=== PATIENT | female | born 2000 | race Two or more races ===

== ENCOUNTER 2024-05-14 20:28 | Emergency (ER) | payer MEDICAID, SELFPAY ==
[2024-05-14 20:29] VITALS: BMI 25.6
[2024-05-14 20:38] VITALS: BP 141/80; PULSE 91; RESP 18; TEMP 36.7; O2SAT 98
--- NOTE | 2024-05-14 20:41 | XR_ITS ---
Examination: Pelvic ultrasound, transabdominal, complete Technique: Transabdominal ultrasound of the pelvis performed using grayscale imaging Date and time of exam: May 14, 2024 10:15 PM INDICATIONS: Onset left pelvic pain today FINDINGS: Uterus 6.7 cm endometrial stripe 0.2 cm No uterine mass or intrauterine gestation Right ovary 2.5 cm arterial flow Left ovary 3.0 cm arterial flow 17 mm follicular cyst IMPRESSION: No uterine mass or intrauterine gestation
--- NOTE | 2024-05-14 20:42 | PD.EDRME ---
Rapid Medical Screening Exam RME Arrival date/time: 05/14/24 20:28 24 yo f present to ED for c/o of pelvic pain for 1 day I have greeted and performed a focused initial assessment of this patient. A comprehensive ED assessment and evaluation of the patient, analysis of all test results, and completion of the medical decision making process will be conducted by additional ED providers. Chief Complaint: Abdominal Pain Time Seen by Provider: 05/14/24 20:31 Vital signs: Vital Signs Temperature 98.1 F 05/14/24 20:38 Pulse Rate 91 05/14/24 20:38 Respiratory Rate 18 05/14/24 20:38 Blood Pressure 141/80 H 05/14/24 20:38 Pulse Oximetry (%) 98 05/14/24 20:38 Oxygen Delivery Method Room Air 05/14/24 20:38 Vital signs reviewed by provider: Yes RME Narrative: Dr. Ayah CATALAN: 24-year-old female who is not sexually active at this time last menstrual period was approximately 1 year ago presenting to the emergency department with 2-day history of left lower quadrant aching like pain that is nonradiating and is an 8 out of 10. The patient states she took Tylenol this morning with some relief down to a 2 out of 10 but the pain returned. The patient has not had pain like this in the past. She denies burning when she urinates and or vaginal discharge. No back pain. Past medical history is consistent with history of gallbladder disease 3 years ago. Review of systems are negative for chest pain, shortness of breath, fever, or lightheadedness.
--- NOTE | 2024-05-14 20:49 | PD.EDABDPN ---
ED Abdominal Pain RME/HPI General Chief Complaint: Abdominal Pain Stated complaint: LL abd pain Time seen by provider: 05/14/24 20:31 Arrival date/time: 05/14/24 20:28 Source: patient Mode of arrival: ambulatory Limitations: no limitations RME / HPI RME / HPI narrative: Dr. Wade?s Main ED Evaluation: 24-year-old female with a remote history of gallbladder disease (3 years ago), currently not sexually active, presents with a 2-day history of non-radiating, aching pain localized to the left lower quadrant positive, rated 8/10 at its peak. She reports partial relief to 2/10 after taking Tylenol this morning, though the pain subsequently returned. She denies similar episodes in the past. + dysuria. No associated urinary symptoms vaginal discharge, or back pain. Last menstrual period was approximately one year ago. ROS is negative for chest pain, shortness of breath, fever, or lightheadedness. Related Data Previous Rx's ?Medication ?Instructions ?Recorded cephalexin 500 mg capsule 500 mg PO TID #21 caps 05/15/24 Allergies Allergy/AdvReac Type Severity Reaction Status Date / Time ibuprofen Allergy Severe Hives Verified 05/14/24 20:33 Review of Systems Review of Systems Systems Reviewed: All systems reviewed, normal except as documented Past Medical History Past Medical History NEUROLOGIC: Negative Neurological Disorders or Seizures CARDIAC: Negative Cardiac Disorders or Congestive Heart Failure RESPIRATORY: Negative Chronic Obstructive Pulmonary Disease (COPD) or Asthma GASTROINTESTINAL: Positive Gall Bladder Disease (lap cholecystectomy in 10/2020); Negative Gastrointestinal Disorders or Hepatitis GENITOURINARY: Negative Genitourinary Disorders or Renal Disease REPRODUCTIVE: Positive Previous Pregnancies (x1); Negative Endometriosis, Genital Herpes, Gonorrhea, Pelvic Inflammatory Disease, Syphilis or Uterine Prolapse MUSCULOSKELETAL: Negative Musculoskeletal Disorders ENDOCRINE: Negative Endocrine Disorders, Diabetes Mellitus Type 1 or Diabetes Mellitus Type 2 HEMATOLOGIC: Negative Blood Disorders, Sickle Cell Disease or Clotting Problems OTHER HISTORY: Positive Hospitalization (gallbladder pain in 10/2020); Negative Autoimmune Disease, Falls, Blood Transfusions, Blood Transfusion Reaction, Anesthesia Reactions, MRSA, VRSA, Human Immunodeficiency Virus (HIV), Chicken Pox, Measles, Mumps, Rubella (Swedish Measles), Pertussis, Clostridium Difficile or Cancer Family History FAMILY HISTORY: Negative Family Psychiatric Problems, Family Respiratory Disorders, Family Cardiac Disorders, Family Gastrointestinal Problems, Family Cancer, Family Surgery or Family Anesthesia Reaction Surgical History SURGICAL: Positive Tympanostomy Tube (possible as a child), Abdominal Surgery (C/S 10/16/20) and Section (x1); Negative Cardiac Surgery or Endocrine Surgery Social History SMOKING STATUS: Never smoker SECOND HAND EXPOSURE: No SUBSTANCE USE: does not use ED Exam General Limitations: Present no limitations General appearance: Present alert and in no apparent distress Head Head exam: Present atraumatic Eye Eye exam: Present normal appearance, PERRL and EOMI ENT ENT exam: Present normal exam, normal oropharynx and mucous membranes moist Neck Neck exam: Present normal inspection, full ROM and trachea midline Chest Chest inspection: Present normal inspection and symmetric chest wall rise Respiratory Respiratory exam: Present normal lung sounds bilaterally Cardiovascular Cardiovascular exam: Present regular rate, normal rhythm and normal heart sounds Abdominal Exam Abdominal exam: Present soft and normal bowel sounds Extremities Exam Extremities exam: Present normal inspection and full ROM Back Exam Back exam: Present normal inspection and full ROM Neurological Exam Neurological exam: Present alert, oriented X3 and CN II-XII intact Psychiatric Psychiatric exam: Present normal affect and normal mood Skin Skin exam: Present warm, dry, intact and normal color Course Quality Measures none Orders Category Date Time Status US pelvic complete Stat Exams 05/14/24 20:41 Completed CBC Stat Lab 05/14/24 20:48 Completed CMP [Comprehensive Metabolic Panel] Stat Lab 05/14/24 20:48 Completed HCG,Qualitative Serum Stat Lab 05/14/24 20:48 Completed UA [Urinalysis] Stat Lab 05/14/24 21:38 Completed Vital Signs Vital signs: Vital Signs Temperature 98.1 F 05/14/24 20:38 Pulse Rate 91 05/14/24 20:38 Respiratory Rate 18 05/14/24 20:38 Blood Pressure 141/80 H 05/14/24 20:38 Pulse Oximetry (%) 98 05/14/24 20:38 Oxygen Delivery Method Room Air 05/14/24 20:38 Abdominal Pain MDM MDM Narrative MDM Narrative:: 24-year-old female with history of cholecystectomy presenting the emergency department with dysuria and left lower quadrant pain x 2 days. Patient otherwise appears in no acute distress. No rebound on exam. Differential diagnosis includes UTI, pelvic cyst, dysuria, ruptured cyst, pyelonephritis ED course While in the emergency department. Labs are drawn. Hemoglobin is 6.9 with an H&H of 14/40. Platelets 279. All of these labs are normal. BUN/creatinine are normal. Otherwise hCG is negative Urinalysis shows 18 white cells rare bacteria and leukocytes. Will treat for UTI. Pelvic ultrasound is pending. Scribe Attestation: I, Damien Manang, am scribing for and in the presence of Dr. Wade. Provider Notation: Although this document has been carefully reviewed, there may still be some phonetic and other typographical errors. These errors are purely grammatical due to imperfections in the software program and should not be construed in any way to compromise the substance of the patient's medical care during this visit. Patient data External records reviewed:: [facility] previous records Clinical information provided by:: patient Social determinants that could affect healthcare access:: none Patient has the following chronic illnesses:: see PMH How is presenting disease/condition affected by chronic disease/condition?: uneffected by Evaluation data The following diagnostics were reviewed and interpreted by me:: lab results and radiology exam(s) Lab and/or radiology exams considered but not ordered:: n/a Interpretation Summary: see MDM narrative Medications / Prescriptions Medications or Prescriptions considered but not ordered:: n/a Medication administrations:: as above Consultations Consultation(s) initiated? (list below): No Diagnosis Differential diagnosis abdominal pain: other (see MDM narrative) Most likely diagnosis given after review of the tests above:: see clinical impression below Admission Indicated Admission indicated?: not indicated Admission Request Was there a request for admission?: No Disposition Plan Disposition Plan: Discharge Discharge Attestation Discharge Attestation: The patient and all family members were given an opportunity to ask questions and understood the discharge instructions. Discharge instructions specifically effects, indications for sooner follow up or return to the emergency department, and the expected course of current diagnosis. Patient condition: Stable Discharge Plan Plan Patient Disposition: HOME (Self Care) Patient condition on transfer: Stable Prescriptions/Referrals Prescriptions/Med Rec: New cephalexin 500 mg capsule 500 mg PO TID Qty: 21 0RF Referrals: Td Ospina MD [Primary Care Provider] - 05/18/24 Problem List Clinical Impression: UTI (urinary tract infection) Patient/Caregiver Discharge Instructions Education Materials: ED CYSTITIS Female Adult Additional Instructions: 1.Today you have a urinary tract infection. Please take the antibiotics as prescribed and finish them. If you are on control you will have to use alternate form of protection for the next 30 days because of the antibiotics. 2.Please follow-up with your primary care physician in 72 hours to get the results of the urine culture. 3.Return to the emergency department sooner for fever, back pain, nausea vomiting and inability tolerate liquids, or any other concerns. Print Language: Icelandic Stand Alone Forms: Gilda Award Info., Patient Portal Info Letter
[2024-05-14 21:11] LABS: Basophils % (Auto) 1 % (0-2.5); Eosinophils # (Auto) 0.2 Thou/mm3 (0.0-0.5); Eosinophils % (Auto) 2 % (0-10); Hematocrit 40.1 % (36.0-46.0); Immature Granulocytes % (Auto) 1 % (0-0); Immature Granulocytes Auto 0.05 Thou/mm3 (0.00-0.00); Lymphocytes # (Auto) 2.8 Thou/mm3 (1.0-4.8); Lymphocytes % (Auto) 40 % (10-50); Mean Corpuscular HGB Conc 34.9 g/dl (31.0-37.0); Mean Corpuscular Hemoglobin 30.3 pg (25.0-35.0); Mean Corpuscular Volume 87 fL (80-100); Monocytes # (Auto) 0.5 Thou/mm3 (0.0-0.8); Monocytes % (Auto) 7 % (0-12); Neutrophils # (Auto) 3.4 Thou/mm3 (1.8-7.7); Neutrophils % (Auto) 49 % (37-80); Nucleated Red Blood Cell % 0 /100 WBC (0); Platelet Count 279 Thou/mm3 (140-440); RDW Standard Deviation 40.1 fL (36.4-46.3); Red Blood Count 4.62 Miln/mm3 (4.00-5.20); White Blood Count 6.9 Thou/mm3 (3.6-11.0)
[2024-05-14 21:30] LABS: Alanine Aminotransferase 36 U/L (10-49); Albumin, Serum 4.5 gm/dL (3.5-5.0); Albumin/Globulin Ratio 1.6 (1.2-2.2); Alkaline Phosphatase 117 U/L (46-116); Anion Gap 7 (7-16); Aspartate Amino Transferase 19 U/L (0-34); BUN/Creatinine Ratio 14 Ratio (12-20); Bilirubin,Total 0.9 mg/dL (0.3-1.2); Blood Urea Nitrogen 11 mg/dL (9-23); Calcium 9.7 mg/dL (8.3-10.6); Calcium (Corrected) 9.7 mg/dL (8.5-10.1); Carbon Dioxide 27.3 mMol/L (20.0-31.0); Chloride 108 mMol/L (98-107); Creatinine (Component) 0.8 mg/dL (0.6-1.3); Estimated Creatinine Clearance 95.8 mL/min (>60); Globulin 2.8 gm/dL (2.3-3.5); Glucose 101 mg/dL (74-106); Osmolality,Calculated 282 (275-295); Potassium 4.5 mMol/L (3.4-5.1); Sodium 142 mMol/L (136-145); Total Protein 7.3 gm/dL (5.7-8.2); eGFR > 60 See Note
[2024-05-14 21:33] LABS: HCG,Qualitative Serum Negative
[2024-05-14 21:50] LABS: Collection Type, Urine Voided
[2024-05-14 21:53] LABS: Bacteria,Urine Rare; Bilirubin,Urine Negative (Negative); Blood,Urine Negative (Negative); Budding Yeast,Urine Present; Clarity,Urine Turbid (Clear/Hazy); Color,Urine Lt-Yellow (Lt Yel-Yel); Glucose, Urine Negative (Negative); Hyaline Casts,Urine < 1 /hpf (0-1); Ketones,Urine Negative (Negative); Leukocyte Esterase,Urine Positive (Negative); Nitrite,Urine Positive (Negative); PH,Urine 6.5 (5.0-7.0); Protein,Urine Negative (Neg - Trace); RBC,Urine 5 /hpf (0-3); Specific Gravity,Urine 1.023 (1.001-1.035); Squamous Epithelial Cell,Urine 2 /hpf (0-5); Urobilinogen,Urine Negative mg/dL (0.0-1.0); WBC,Urine 18 /hpf (0-5)
[2024-05-14 23:43] VITALS: BP 142/75; PULSE 93; RESP 20; TEMP 36.7; O2SAT 98
[2024-05-15 01:23] VITALS: RESP 18
== END 2024-05-15 01:24 | disposition home or self-care (01) ==
PROVIDERS: Physician Assistant; Emergency Provider Emergency Medicine; PCP Family Medicine
DX: N39.0 Urinary tract infection, site not specified (principal); R10.2 Pelvic and perineal pain
CPT/HCPCS: 36415; 76856; 80053; 81001; 84703; 85025; 99284